=== PATIENT | female | born 1945 | race American Indian/Alaskan Native ===

== ENCOUNTER 2017-04-17 16:40 | Emergency (ER) | payer MEDICARE, MEDICAID ==
[2017-04-17 16:48] VITALS: BP 136/77; PULSE 86; RESP 18; TEMP 97.9; O2SAT 96
--- NOTE | 2017-04-17 18:01 | C.PDOC ---
Chief Complaint (Nursing): Pain, Chronic Past Medical History Vital Signs: Last Vital Signs Temp 97.9 F 04/17/17 16:43 Pulse 86 04/17/17 16:43 Resp 18 04/17/17 16:43 BP 136/77 04/17/17 16:43 Pulse Ox 96 04/17/17 16:43 - Medical History PMH: HTN Family History: States: Unknown Family Hx - Social History Hx Alcohol Use: No Hx Substance Use: No - Immunization History Hx Influenza Vaccination: No Hx Pneumococcal Vaccination: No ED Course And Treatment O2 Sat by Pulse Oximetry: 96 Disposition - Disposition Forms: [facility] (Yi)
== END 2017-04-17 17:45 | disposition left against medical advice (07) ==
LOC: C.ER 16:40
DX: Z02.89 Encounter for other administrative examinations (principal); M25.551 Pain in right hip